=== PATIENT | female | born 1990 | race Caucasian/White ===

== ENCOUNTER 2018-09-27 10:23 | Outpatient (CLI) | payer MEDICAID, SELFPAY ==
[2018-09-27 12:10] LABS: Iron 31 ug/dL (50-175)
[2018-09-27 12:11] LABS: Total Iron Binding Capacity 326 ug/dL (250-450); Transferrin Sat 10 % (15-50)
[2018-09-27 12:13] LABS: ALT 18 U/L (12-78); AST 16 U/L (15-37); Albumin 3.4 g/dL (3.4-5.0); Alkaline Phosphatase 113 U/L (46-116); Anion Gap 4.9 mmol/L (3-11); BUN 9 mg/dL (7-18); Bilirubin, Total 0.3 mg/dL (0.2-1.0); CO2 31.1 mmol/L (21.0-32.0); CREATININE 0.59 mg/dL (0.55-1.02); Calcium 9.5 mg/dL (8.5-10.1); Chloride 106 mmol/L (98-107); Glucose 93 mg/dL (70-100); Potassium 4.7 mmol/L (3.5-5.1); Sodium 142 mmol/L (136-145); TSH (W/Ref FT4) 2.33 uIU/mL (0.358-3.74)
== END 2018-09-27 10:43 ==
PROVIDERS: PCP Family Medicine; Visit Provider Family Medicine
DX: E61.1 Iron deficiency (principal); E03.9 Hypothyroidism, unspecified; R73.03 Prediabetes; Z68.43 Body mass index [BMI] 50.0-59.9, adult
CPT/HCPCS: 36415; 80053; 83540; 83550; 84443

== ENCOUNTER 2019-08-29 10:02 | Outpatient (REF) | payer MEDICAID, SELFPAY ==
[2019-08-29 13:56] LABS: Iron 31 ug/dL (50-170); Total Iron Binding Capacity 319 ug/dL (250-450); Transferrin Sat 10 % (15-50)
[2019-08-29 14:08] LABS: Ferritin 27 ng/mL (8-252); TSH (W/Ref FT4) 2.53 uIU/mL (0.36-3.74)
[2019-08-29 14:24] LABS: Hemoglobin A1C 5.9 % (3.8-5.6)
== END 2019-08-29 10:22 ==
LOC: NCHCN 10:02
PROVIDERS: PCP Family Medicine; Visit Provider Family Medicine
DX: E61.1 Iron deficiency (principal); E03.9 Hypothyroidism, unspecified; R73.03 Prediabetes
CPT/HCPCS: 82728; 83036; 83540; 83550; 84443

== ENCOUNTER 2020-06-10 16:05 | Outpatient (REF) | payer MEDICAID, SELFPAY ==
[2020-06-14 13:11] LABS: Patient Race White; SARS-CoV-2 RNA Undetected (Undetected); SARS-CoV-2 Specimen Source Nasal
== END 2020-06-10 16:25 ==
LOC: NCHCN 16:05
PROVIDERS: PCP Family Medicine; Visit Provider Nurse Practitioner Family
DX: J02.9 Acute pharyngitis, unspecified (principal)
CPT/HCPCS: U0003

== ENCOUNTER 2021-12-04 13:22 | Emergency (ER) | payer MEDICAID, SELFPAY ==
[2021-12-04 13:30] VITALS: BP 125/88; PULSE 100; RESP 100; TEMP 36.6; O2SAT 98
[2021-12-04 14:12] VITALS: BP 124/80; PULSE 100; RESP 16; TEMP 36.7; O2SAT 97
--- NOTE | 2021-12-06 11:31 | W.ED.GENAD ---
Discharge Plan Disposition Patient Disposition: HOME Condition: Stable Discharge Details Clinical Impression: Diarrhea Primary Care Provider: Mikal Pierre ED Provider: Pinky Small Home Meds and New Rx's Prescriptions: Continued iron citrate PO 0RF valerian root extract 150 mg capsule 300 mg PO ONCE 0RF bitter melon PO 0RF astragalus root 470 mg capsule PO 0RF magnesium oxide 500 mg tablet 500 mg PO DAILY 0RF glucosamine sulfate 500 mg tablet 500 mg PO DAILY 0RF Rx Instructions: administer with a meal levothyroxine 75 MCG tablet 75 mcg PO DAILY Qty: 60 5RF Rx Instructions: 1 tab PO daily Sunday, Sunday, Sunday levothyroxine 88 MCG tablet 88 mcg PO DAILY Qty: 60 5RF Rx Instructions: 1 tab PO daily Sunday, Sunday, Sunday, multivitamin [Daily Multi-Vitamin] 1 EACH tablet 1 ea PO DAILY 0RF cholecalciferol (vitamin D3) 1,000 UNIT tablet 1,000 unit PO DAILY 0RF beta sitasterol 1 tab PO DAILY 0RF trentinoin 1 applic Topical HS 0RF melatonin 5 mg capsule PO DAILY 0RF Rx Instructions: with valerian fluticasone propionate [Allergy Relief (fluticasone)] 50 mcg/actuation spray,suspension 2 spray intranasal DAILY 0RF Rx Instructions: administer into each nostril Discharge Instructions Instructions: Acute Diarrhea (ED) Additional Instructions: Please isolate until your COVID test returns You may take [id number] Imodium should he have persistent diarrhea, however it would be helpful if you return stool sample of diarrhea to the lab for assessment Make sure you stay hydrated, bananas, rice, applesauce, toast Please return earlier should you have any worsening pain including discomfort in your abdomen, vomiting, weakness, blood in your stool, or with any new or worsening Stand Alone Forms: Work Release Referrals: Mikal Pierre [Primary Care Provider] - Discharge Data Discharge Date/Time-TO BE ENTERED AT DEPARTURE: 12/04/21 14:17 Medical Decision Making Patient appears well, she has a benign abdominal exam and I do see no clear indication to check laboratory document on her Her repeat pulse is 89 She is afebrile and nontoxic in appearance A COVID swab is pending She denies any chance of and otherwise quite well and is. Given low threshold to return with new or worsening complaints She was given stool supplies to return a sample of diarrhea for specimen Return discussed and patient expressed understanding Work note supplied Medical Records Medical records reviewed: Yes I reviewed the patient's medical records. Lab Data Lab results reviewed: Yes I reviewed the patient's lab results. HPI General Date/Time Provider Initiated Documentation: 12/04/21 13:38. HPI Narrative: 31-year-old female presents with diarrhea for the past several days she states her symptoms started on the sixth. She had associated cough and subjective fevers. She does report possible exposure at work to COVID-19. This was several days prior to her onset of symptoms. She denies any blood in her stool. She denies any nausea or vomiting. She denies any shortness of breath or chance of . She states she is unable to tolerate Seroquel at home. She denies any recent antibiotic use or exotic travel. Related Data Home Medications Medication Instructions Recorded Confirmed levothyroxine 75 mcg tablet 75 mcg PO DAILY #60 tab-cap 10/12/17 12/04/21 levothyroxine 88 mcg tablet 88 mcg PO DAILY #60 tab-cap 10/12/17 12/04/21 Beta Sitasterol 1 tab PO DAILY 11/05/17 08/30/21 Trentinoin 1 applic TOPICAL HS 11/05/17 08/30/21 cholecalciferol (vitamin D3) 25 1,000 unit PO DAILY 11/05/17 08/30/21 mcg (1,000 unit) tablet multivitamin (Daily Multi-Vitamin) 1 ea PO DAILY 11/05/17 12/04/21 fluticasone propionate 50 2 spray INTRANASAL DAILY g 06/15/21 12/04/21 mcg/actuation nasal spray,suspension (Allergy Relief (fluticasone)) melatonin 5 mg capsule mg PO DAILY cap 06/15/21 08/30/21 astragalus root 470 mg capsule mg PO 08/25/21 08/30/21 bitter melon PO 08/25/21 08/30/21 glucosamine sulfate 500 mg tablet 500 mg PO DAILY 08/25/21 12/04/21 iron citrate PO 08/25/21 08/30/21 magnesium oxide 500 mg tablet 500 mg PO DAILY 08/25/21 12/04/21 valerian root extract 150 mg 300 mg PO ONCE 08/25/21 12/04/21 capsule Previous Rx's Medication Instructions Recorded levothyroxine 75 mcg tablet 75 mcg PO DAILY #60 tab-cap 10/12/17 levothyroxine 88 mcg tablet 88 mcg PO DAILY #60 tab-cap 10/12/17 Allergies Allergy/AdvReac Type Severity Reaction Status Date / Time tomato Concentrate AdvReac Intermediate Hives Uncoded 12/04/21 13:34 General Stated Complaint: Nausea/Vomit/Diar ELIO: 3 Review of Systems All systems reviewed & are unremarkable except as noted in HPI and below PFSH All Active Problems (Updated 12/04/21 @ 14:10 by YAW Torres) Diarrhea (Acute) Carpal tunnel syndrome on both sides (Acute) Medical History Abnormal auditory perception (02/14/16) Acne BMI 50.0-59.9, adult Dietary iron deficiency without anemia History of prediabetes Hyperlipidemia Hypothyroid Knee pain, right Left hip pain Localized pain of shoulder joint Low back pain Obesity Pharyngitis Polycystic ovary syndrome Surgical History No significant past surgical history Family History Father Hypertension Diabetes Mother Diabetes Social History Smoking/Tobacco Use Status: Never Smoking risk assessment performed?: Yes Alcohol Intake: former Drug use: Never Substance use type: does not use Household members: none Number of Children: 0 current occupation: [employer] Current gender identity: female Seatbelt use: always Do you feel safe in your relationship?: Yes Exam Const General: cooperative, comfortable and no acute distress HENMT Mouth: oral mucosae normal Eyes Conjunctivae: conjunctivae normal Pupils: PERRL Resp Effort & Inspection: normal respiratory effort Auscultation: clear to auscultation bilaterally Cardio Rate: regular rate Rhythm: regular rhythm GI Inspection: normal to inspection Auscultation: normal bowel sounds Other: Nontender abdominal exam Skin General skin exam: no rashes or lesions noted Neuro General: patient alert and patient oriented x3 Course Vital Signs Vital signs: Vital Signs Temperature 36.6 C 12/04/21 13:30 Pulse 100 H 12/04/21 13:30 Respiratory Rate 100 H 12/04/21 13:30 Blood Pressure 125/88 12/04/21 13:30 Pulse Oximetry 98 12/04/21 13:30 Temperature 36.7 C 12/04/21 14:12 Temperature Source Oral 12/04/21 14:12 Pulse 100 H 12/04/21 14:12 Respiratory Rate 16 12/04/21 14:12 Respiratory Effort 12/04/21 13:37 Blood Pressure 124/80 12/04/21 14:12 Blood Pressure Position Sitting 12/04/21 13:30 Pulse Oximetry 97 12/04/21 14:12 Oxygen Delivery Method Room Air 12/04/21 14:12 Oxygen Flow Rate 0 12/04/21 14:12 Pain Level 0 12/04/21 13:30 Lab/Test Results Lab/Test Results: Laboratory Tests Range/Units 12/04/21 12/04/21 13:38 13:38 WBC Cancelled RBC Cancelled Hgb Cancelled Hct Cancelled MCV Cancelled MCH Cancelled MCHC Cancelled RDW Cancelled Plt Count Cancelled MPV Cancelled Immature Gran % Cancelled Neutrophils % Cancelled Band Neutrophils % Cancelled Lymphocytes % Cancelled Atypical Lymphs % Cancelled Monocytes % Cancelled Eosinophils % Cancelled Basophils % Cancelled Metamyelocytes % Cancelled Myelocytes % Cancelled Promyelocytes % Cancelled Other Cells % Cancelled Nucleated RBC % Cancelled Absolute Neutrophils Cancelled Absolute Lymphocytes Cancelled Absolute Monocytes Cancelled Absolute Eosinophils Cancelled Absolute Basophils Cancelled RBC Morphology Cancelled Polychromasia Cancelled Hypochromasia Cancelled Poikilocytosis Cancelled Basophilic Stippling Cancelled Anisocytosis Cancelled Microcytosis Cancelled Macrocytosis Cancelled Spherocytes Cancelled Tear Drop Cells Cancelled Ovalocytes Cancelled Stomatocytes Cancelled [place] Bodies Cancelled [place] Cells/Echinocytes Cancelled Acanthocytes (Spur) Cancelled Schistocytes Cancelled Sodium Cancelled Potassium Cancelled Chloride Cancelled Carbon Dioxide Cancelled Anion Gap Cancelled BUN Cancelled Creatinine Cancelled Estimated GFR/1.73 m2 Cancelled Glucose Cancelled Calcium Cancelled Magnesium Cancelled Total Bilirubin Cancelled AST Cancelled ALT Cancelled Alkaline Phosphatase Cancelled Total Protein Cancelled Albumin Cancelled
[2021-12-06 13:29] LABS: COVID-19 RT-PCR UVMMC Result Negative (Negative)
== END 2021-12-04 14:17 | disposition home or self-care (01) ==
PROVIDERS: Emergency Provider Physician Assistant; PCP Family Medicine
DX: R19.7 Diarrhea, unspecified (principal)
CPT/HCPCS: 80053; 99282; U0003; 83735; 85025

== ENCOUNTER 2021-12-05 17:51 | Outpatient (REF) | payer MEDICAID, SELFPAY ==
[2021-12-05 17:20] LABS: C Diff PCR Negative (Negative)
[2021-12-06 23:09] LABS: Campylobacter PCR Negative (Negative); Salmonella PCR Negative (Negative); Shiga Toxin PCR Negative (Negative); Shigella/Enteroinvasive Ecoli Negative (Negative)
== END 2021-12-05 17:52 | disposition home or self-care (01) ==
LOC: NCHCN 17:51
PROVIDERS: PCP Family Medicine; Visit Provider Family Medicine
DX: R19.8 Other specified symptoms and signs involving the digestive system and abdomen (principal)
CPT/HCPCS: 87493; 87505; 87177

== ENCOUNTER 2021-12-28 15:32 | Outpatient (REF) | payer MEDICAID, SELFPAY ==
--- NOTE | 2021-12-28 13:30 | PAPFT_PTH ---
PATIENT: Sobia Shanks LOC: [facility] U#:[id number] AGE/SX: 31/F ROOM: RE12/28/[address]: Viri Guido NP : 1990 BED: DIS: 12/28/2021 SPEC #: [id number] RECD: 12/28/21 18:16 STATUS: EDMAR REFlynn #: [id number] SILVIA: 12/28/21 13:[address]: Viri Guido NP DEPT: [facility] Cytology RECD BY: Pinky Deras ENTERED: 12/28/21 18:16 SP TYPE: PAPFT OTHR DR: Mikal Pierre Tissues: 1 - CX/ENDOCX FOR PAP SMEARS Procedures: PAP THIN PREP/UVM Screening Comments: [id number]
== END 2021-12-28 15:33 | disposition home or self-care (01) ==
LOC: LBN 15:32
PROVIDERS: PCP Family Medicine; Visit Provider Nurse Practitioner Women's Health
DX: Z12.4 Encounter for screening for malignant neoplasm of cervix (principal)
CPT/HCPCS: 88142

== ENCOUNTER 2022-01-03 19:53 | Outpatient (REF) | payer MEDICAID, SELFPAY ==
[2022-01-03 19:15] LABS: Iron 51 ug/dL (50-170); Total Iron Binding Capacity 288 ug/dL (250-450); Transferrin Sat 18 % (15-50)
[2022-01-03 19:32] LABS: Calculated LDL 159 mg/dL (<100); Cholesterol 243 mg/dL (<200); HDL Cholesterol 57 mg/dL (40-60); Triglyceride 135 mg/dL (<150)
[2022-01-03 20:29] LABS: TSH (W/Ref FT4) 2.15 uIU/mL (0.36-3.74)
== END 2022-01-03 19:54 | disposition home or self-care (01) ==
LOC: NCHCN 19:53
PROVIDERS: PCP Family Medicine; Visit Provider Family Medicine
DX: E03.9 Hypothyroidism, unspecified (principal); E61.1 Iron deficiency; E78.5 Hyperlipidemia, unspecified
CPT/HCPCS: 80061; 83540; 83550; 84443